=== PATIENT | male | born 1960 | race Two or more races ===

== ENCOUNTER 2016-07-29 15:31 | Emergency (ER) | payer MEDICARE, MEDICAID ==
[~2016-07-29] VITALS: Ht 182.9 cm; Wt 112.0 kg
[2016-07-29 15:44] VITALS: BP 137/78
[2016-07-29] MEDS ORDERED: DOXA2TAB PO (15:49)
[2016-07-29] MEDS ORDERED: SIMV40TA5 PO (15:49)
[2016-07-29] MEDS ORDERED: AMLO10TA80 PO (15:49)
== END 2016-07-29 16:44 | disposition home or self-care (01) ==
LOC: ER 15:44
DX: J18.9 Pneumonia, unspecified organism (principal); J44.9 Chronic obstructive pulmonary disease, unspecified; I10 Essential (primary) hypertension; Z88.0 Allergy status to penicillin; E78.00 Pure hypercholesterolemia, unspecified
CPT/HCPCS: 71010; 99283